=== PATIENT | male | born 1975 | race Caucasian/White ===

== ENCOUNTER 2019-09-30 13:00 | Emergency (ER) | payer SELFPAY ==
[2019-09-30 13:42] LABS: Absolute Lymphocytes (CBC) 0.8 K/uL (0.7-4.9); Basophils % 1.2 % (0-1.3); Hematocrit 43.1 % (39.6-49.0); Lymphocytes % 11.6 % (15.3-44.8); MPV 7.8 fL (7.6-11.3); RBC Red Blood Cell Count 4.44 M/uL (4.33-5.43)
[2019-09-30 13:45] LABS: Protime INR 0.96
--- NOTE | 2019-09-30 13:50 | ER ---
Nurse's Notes [facility] Name: James Ga Age: 44 yrs Sex: Male : 1975 Arrival Date: 09/30/2019 Time: 13:01 Bed 3 Private MD: Diagnosis: Presentation: 09/29 13:05 Chief complaint: Patient states: Syncopal events (about 5 times, awakes within 30 ll1 seconds) today. +ETOH and tailgating in the heat. Took BP meds this am, but hasn't eaten today. States he is ready to leave. No pain. EMS states: BP 80/42, HR 55, fingerstick 116. Coronavirus screen: Client denies travel out of the [place] in the last 14 days. At this time, the client does not indicate any symptoms associated with coronavirus-19. Ebola Screen: Patient denies travel to an Ebola-affected area in the 21 days before illness onset. Initial Sepsis Screen: Does the patient meet any 2 criteria? Systolic BP < 90 mmHg. HR > 90 bpm. Risk Assessment: Do you want to hurt yourself or someone else? Patient reports no desire to harm self or others. Onset of symptoms was September 30, 2019. 13:05 Method Of Arrival: EMS: [facility] 13:05 Acuity: ALVINA 2 ll1 13:47 Initial Sepsis Screen: Does the patient have a suspected source of infection? No. ll1 Patient's initial sepsis screen is negative. Historical: - Allergies: 13:07 No Known Allergies; ll1 - PMHx: 13:07 Hypertension; prostate problems; ll1 - Immunization history:: Adult Immunizations up to date. - Social history:: Smoking status: Patient reports the use of cigarette tobacco products, smokes one-half pack cigarettes per day, Patient uses alcohol, only on a social basis. admits to "couple of beers" a day. Patient/guardian denies using street drugs. Screenin:47 Abuse screen: Denies threats or abuse. Nutritional screening: No deficits noted. ll1 Tuberculosis screening: No symptoms or risk factors identified. Fall Risk IV access (20 points). Gait- Weak (10 pts.). Total Larson Fall Scale indicates No Risk (0-24 pts). Assessment: 13:05 General: Appears in no apparent distress. Behavior is cooperative, Smells of alcohol. ll1 Pain: Denies pain. Neuro: Level of Consciousness is awake, alert, obeys commands, Oriented to person, place, time, situation, Appropriate for age Ampoule Filler are equal bilaterally Moves all extremities. Full function Gait is steady, Speech is normal, Facial symmetry appears normal, Reports a syncopal episode. Cardiovascular: Heart tones S1 S2 Capillary refill < 3 seconds Clubbing of nail beds is absent Patient's skin is warm and dry. Rhythm is regular. Respiratory: No deficits noted. GI: No deficits noted. Vital Signs: 13:05 BP 71 / 53; Pulse 93; Resp 18; Temp 98.1; Pulse Ox 94% on R/A; Pain 0/10; ll1 13:29 BP 100 / 60; Pulse 91; Resp 18; Pulse Ox 98% ; Pain 0/10; ll1 13:44 BP 99 / 67; Pulse 88; Resp 18; Pulse Ox 97% ; Pain 0/10; ll1 ED Course: 13:01 Patient arrived in ED. ll1 13:05 Maintain EMS IV. Dressing intact. Good blood return noted. Site clean \\T\\ dry. Gauge \\T\\ ll 1 site: 20 G L AC. 13:07 Triage completed. ll1 13:08 Arm band placed on Patient placed in an exam room, on a stretcher. ll1 13:10 Yasmany Barth MD is Attending Physician. kdr 13:35 XRAY Chest (1 view) In Process Unspecified. EDMS 13:37 Vinnie Mc, LISSA is Primary Nurse. ll1 13:46 IV discontinued, intact, bleeding controlled, No redness/swelling at site. Pressure ll1 dressing applied. 13:48 Patient has correct armband on for positive identification. Bed in low position. Call ll1 light in reach. Side rails up X 1. 13:48 No provider procedures requiring assistance completed. ll1 Administered Medications: 13:14 Drug: NS 0.9% 1000 ml Route: IV; Rate: 1 bolus; Site: left antecubital; ll1 13:49 Follow up: Response: No adverse reaction; RASS: Alert and Calm (0); IV Status: ll1 Completed infusion; IV Intake: 1000ml Point of Care Testin:47 116 BUSINESS SPECIALIST with EMS ll1 Ranges: Intake: 13:49 IV: 1000ml; Total: 1000ml. ll1 Outcome: 13:48 AMA AMA form signed 1 13:48 Condition: improved 13:48 Instructed on AMA instructions, return as needed. Demonstrated understanding of AMA instructions 13:50 Patient left the ED. ll1 Signatures: Dispatcher [employer] EDMS Yasmany Barth MD MD kdr Lewis, Lynsay, RN RN 1
--- NOTE | 2019-09-30 13:56 | RAD REPORT ---
EXAM DESCRIPTION: RAD - Chest Single View - 09/30/2019 1:35 pm CLINICAL HISTORY: Syncope, hypertension COMPARISON: None TECHNIQUE: AP portable chest image was obtained 09/30/2019 1:35 pm . FINDINGS: Lungs are clear. Heart and vasculature are normal. No measurable pleural effusion and no p neumothorax. No acute bony abnormality seen. No acute aortic findings suspected. IMPRESSION: No acute cardiopulmonary process.
[2019-09-30 14:18] LABS: ALT/SGPT 87 U/L (12-78); AST/SGOT 62 U/L (15-37); Albumin 3.6 g/dL (3.4-5.0); Alkaline Phosphatase 61 U/L (45-117); BUN Blood Urea Nitrogen 5 mg/dL (7-18); Bicarbonate 24 mmol/L (21-32); Bilirubin Direct 0.2 mg/dL (0-0.2); Bilirubin Total 0.7 mg/dL (0.2-1.0); Glucose Level 89 mg/dL (74-106); Magnesium 1.9 mg/dL (1.8-2.4); NT PRO-BNP 40 pg/mL (<125); Potassium 3.8 mmol/L (3.5-5.1); Protein, Total 6.5 g/dL (6.4-8.2); Sodium Level 138 mmol/L (136-145); Troponin (Emerg Dept Use Only) < 0.02 ng/mL (0.0-0.045)
[2019-09-30 14:47] VITALS: BP 99/67; TEMP 98.1; O2SAT 97
== END 2019-09-30 13:50 | disposition left against medical advice (07) ==
LOC: ER 13:00
DX: R55 Syncope and collapse (principal); I10 Essential (primary) hypertension; F17.210 Nicotine dependence, cigarettes, uncomplicated
CPT/HCPCS: 36415; 71045; 80048; 80076; 80320; 83735; 83880; 84484; 85025; 85610; 96360; 99284